=== PATIENT | female | born 1985 | race Caucasian/White ===

== ENCOUNTER 2020-03-16 11:00 | Emergency (ER) | payer OTHER ==
[~2020-03-16] VITALS: Ht 157.5 cm; Wt 92.5 kg
[2020-03-16 11:21] VITALS: BP 128/69; Ht 157.5 cm; Wt 92.5 kg
== END 2020-03-16 12:59 | disposition home or self-care (01) ==
LOC: ED 11:00
DX: M17.11 Unilateral primary osteoarthritis, right knee (principal); M19.072 Primary osteoarthritis, left ankle and foot; Z98.890 Other specified postprocedural states